=== PATIENT | male | born 1995 | race Hispanic/Latino ===

== ENCOUNTER 2022-10-30 20:46 | Emergency (ER) | payer OTHER ==
[~2022-10-30] VITALS: Ht 180.3 cm; Wt 79.5 kg
[2022-10-30 23:30] VITALS: BP 127/79
== END 2022-10-30 23:30 | disposition home or self-care (01) ==
LOC: ED 20:46
DX: S42.021A Displaced fracture of shaft of right clavicle, initial encounter for closed fracture (principal); V86.56XA Driver of dirt bike or motor/cross bike injured in nontraffic accident, initial encounter
CPT/HCPCS: 73030; 99284 25; A9270

== ENCOUNTER 2022-11-02 16:25 | Emergency (ER) | payer OTHER ==
[~2022-11-02] VITALS: Ht 180.3 cm; Wt 79.5 kg
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
[2022-11-02] MEDS ORDERED: HYDROCODON-ACE1 EA10 PO (16:50)
[2022-11-02 17:11] VITALS: BP 152/95
== END 2022-11-02 17:11 | disposition home or self-care (01) ==
LOC: ED 16:25
DX: S42.001D Fracture of unspecified part of right clavicle, subsequent encounter for fracture with routine healing (principal); Z76.0 Encounter for issue of repeat prescription; X58.XXXD Exposure to other specified factors, subsequent encounter
CPT/HCPCS: 99281